=== PATIENT | female | born 2000 | race Caucasian/White ===

== ENCOUNTER 2022-02-09 16:15 | Emergency (ER) | payer SELFPAY ==
--- NOTE | 2022-02-09 16:18 | ERPHSYRPT ---
- History of Present Illness Time Seen by Provider: 02/09/22 16:17 Source: patient Exam Limitations: no limitations Physician History: This is a 21-year-old white female who is right-handed and was bitten by a family dog prior to arrival to the emergency department she has several superficial bites right anterior thigh and right lateral lower leg. They are superficial. Patient also has a small bite site on the lateral portion of her proximal right forearm. This is superficial as well. However, there is a dog bite that measures approximately 1-1/2 cm in length that is through the subcutaneous tissue layer. There is no active bleeding present. Patient states that she is allergic to amoxicillin. Patient also states that the dog is fully vaccinated. Timing/Duration: today Quality: painful Location: extremities (Right forearm, right anterior thigh, right lateral calf) Possible Causes: other (Dog bite) Associated Symptoms: denies symptoms Allergies/Adverse Reactions: Penicillins Allergy (Verified 02/09/22 16:32) Swelling Home Medications: Bupropion HCl Xl 150 mg [Wellbutrin XL 150 MG] 150 mg PO DAILY 02/09/22 [History] Venlafaxine HCl 37.5 mg [Effexor 37.5 mg] 37.5 mg PO DAILY 02/09/22 [History] Travel Risk - International Travel Have you traveled outside of the country in past 3 weeks: No - Coronavirus Screening Are you exhibiting any of the following symptoms?: No Close contact with a COVID-19 positive Pt in past 14-21 Days: No - Review of Systems Constitutional: No Symptoms Eyes: No Symptoms Ears, Nose, & Throat: No Symptoms Respiratory: No Symptoms Cardiac: No Symptoms Abdominal/Gastrointestinal: No Symptoms Genitourinary Symptoms: No Symptoms Musculoskeletal: No Symptoms Skin: Other (Dog bite with multiple superficial sites to the right anterior thigh and right lateral lower leg. There is a single 1.5 cm dorsal forearm dog bite that is open and is into the subcutaneous layer. There is no active bleeding.) Neurological: No Symptoms Psychological: No Symptoms Endocrine: No Symptoms Hematologic/Lymphatic: No Symptoms Immunological/Allergic: No Symptoms All Other Systems: Reviewed and Negative - Past Medical History Pertinent Past Medical History: No - Past Surgical History Past Surgical History: No - Nursing Vital Signs Nursing Vital Signs: Initial Vital Signs Temperature 98.0 F 02/09/22 16:20 Pulse Rate 104 H 02/09/22 16:20 Respiratory Rate 20 02/09/22 16:20 Blood Pressure 114/62 02/09/22 16:20 O2 Sat by Pulse Oximetry 100 02/09/22 16:20 Pain Scale Pain Intensity 8 - Physical Exam General Appearance: mild distress, alert, anxiety Eye Exam: PERRL/EOMI, eyes nml inspection Ears, Nose, Throat Exam: normal ENT inspection, moist mucous membranes Neck Exam: normal inspection, non-tender, supple, full range of motion Respiratory Exam: No chest tenderness, No respiratory distress Gastrointestinal/Abdomen Exam: No tenderness Back Exam: normal inspection, normal range of motion, No CVA tenderness, No ve rtebral tenderness Extremity Exam: normal range of motion, pelvis stable, tenderness (Soft tissue. See below skin section) Neurologic Exam: alert, oriented x 3, cooperative, rn primary care II-XII nml as tested, nml cerebellar function, nml station & gait, other (Patient is neurovascularly intact) Skin Exam: other (Multiple superficial dog bites skin of right anterior thigh, skin of right lateral lower leg, skin of proximal lateral forearm and a laceration of 1.5 cm dorsal right forearm with no active bleeding or foreign body. This wound is open. It penetrates through the subcutaneous tissue layer but does n) Lymphatic Exam: adenopathy SpO2 Interpretation: normal O2 Delivery: Room Air Procedures - Laceration/Wound Repair Right Lower Dorsal Arm Time of Procedure: 16:40 Wound Location: Right, lower arm (Forearm) Wound Length (cm): 1.5 Wound's Depth, Shape: linear, into subcut Wound Explored: clean (Evaluation was performed in bolus field to the base and no foreign bodies noted.) Irrigated: Yes Hibiclens Prep: Yes Anesthesia: 1% Lidocaine Volume Anesthetic (ccs): 5 Wound Repaired With: Stephen (5total. I did place an additional single staple volar aspect 1/2 cm dog bite site) Progress: 02/09/22 16:37 There were no complications. Patient told procedure well. Ordered Tests: Medication Summary Discontinued Medications Generic Name Dose Route Start Last Admin Trade Name Freq PRN Reason Stop Dose Admin Clindamycin HCl 300 mg 02/09/22 16:39 Clindamycin Hcl 150 Mg Capsule PO 02/09/22 16:40 STAT ONE Trimethoprim/Sulfamethoxazole 1 tab 02/09/22 16:39 Smz/Tmp Ds Tablet 1 Tablet PO 02/09/22 16:40 STAT ONE - Progress Progress: improved Progress Note: 02/09/22 16:57 We are sending home 300 mg oral clindamycin and 1 Bactrim DS p.o. Patient was in a constitution party of a wedding and she wants to consume some wine. I think this is reasonable. She should take her antibiotics at least 8 hours after her last drink of wine. She was informed of this. Counseled pt/family regarding: diagnosis, need for follow-up - Departure Departure Disposition: Home Clinical Impression: Dog bite of arm Condition: Stable Critical Care Time: No Additional Instructions: Keep all sites clean daily with soap and water. Take your antibiotics as prescribed. Cover the wounds daily after washing thoroughly each wound each day. Staple removal in 7-8 days. Use Tylenol and ibuprofen for pain control. Do not cover the dog bite sites or laceration repair site with antibiotic ointment, lotions or creams. Prescriptions: Smz/Tmp Ds Tablet [Bactrim Ds Tablet] 1 udtab PO BID #10 tablet Clindamycin HCl 150 mg [Cleocin 150 mg Capsule] 2 cap PO QID #40 cap
[2022-02-09 16:32] VITALS: BP 114/62; PULSE 104; O2SAT 100
[2022-02-09] MEDS ORDERED: CLEOCIN 150 MG CAPSULE PO ONE (16:39)
[2022-02-09] MEDS ORDERED: BACTRIM DS TABLET PO ONE ×2 (16:39→16:56)
[2022-02-09] MEDS ORDERED: CLEOCIN 150 MG CAPSULE ONE (16:56)
== END 2022-02-09 17:12 | disposition home or self-care (01) ==
LOC: ED 16:15
DX: S51.851A Open bite of right forearm, initial encounter (principal); S70.371A Other superficial bite of right thigh, initial encounter; S80.871A Other superficial bite, right lower leg, initial encounter; W54.0XXA Bitten by dog, initial encounter; Z79.899 Other long term (current) drug therapy
CPT/HCPCS: 12001; 99282; A9270-GY